=== PATIENT | female | born 1965 | race American Indian/Alaskan Native ===

== ENCOUNTER 2018-08-03 11:01 | Emergency (ER) | payer BC ==
[2018-08-03 11:32] VITALS: BP 151/99; PULSE 90; RESP 18; TEMP 99.2; O2SAT 98
--- NOTE | 2018-08-03 12:29 | ED PDOC ---
HPI: Back Time Seen by Provider: 08/03/18 12:17 Chief Complaint (Nursing): Back Pain Chief Complaint (Provider): Back pain History Per: Patient History/Exam Limitations: no limitations Onset/Duration Of Symptoms: Days (x2) Additional Complaint(s): Naye Richey, a 52 year old female with no significant past medical history, presents to the ED with back pain onset 2 days. Patient denies any new activities, trouble breathing, urinary symptoms or taking medication. She states that deep breathing hurts a little, movement worsens pain and it hurts when touched. No further medical complaints. Past Medical History Reviewed: Historical Data, Nursing Documentation, Vital Signs Vital Signs: Last Vital Signs Temp 99.2 F 08/03/18 11:30 Pulse 90 08/03/18 11:30 Resp 18 08/03/18 11:30 BP 151/99 H 08/03/18 11:30 Pulse Ox 98 08/03/18 11:30 - Medical History PMH: GERD, HTN - Family History Family History: States: Unknown Family Hx - Home Medications Home Medications: Ambulatory Orders Medication Instructions Recorded hydroCHLOROthiazide [Hydrodiuril] 25 mg PO DAILY #30 tab 06/07/16 Cyclobenzaprine [Cyclobenzaprine 10 mg PO Q8H PRN #12 tab 08/03/18 HCl] Naproxen [Naprosyn] 500 mg PO BID PRN #20 tablet 08/03/18 - Allergies Allergies/Adverse Reactions: Allergies Allergy/AdvReac Type Severity Reaction Status Date / Time acetaminophen [From Percocet] Allergy ITCHING Verified 08/03/18 11:29 oxycodone HCl [From Percocet] Allergy ITCHING Verified 08/03/18 11:29 Review of Systems ROS Statement: Except As Marked, All Systems Reviewed And Found Negative Genitourinary Female: Negative for: Dysuria, Frequency, Incontinence, Hematuria Musculoskeletal: Positive for: Back Pain Physical Exam - Reviewed Nursing Documentation Reviewed: Yes Vital Signs Reviewed: Yes - Physical Exam Appears: Positive for: Well, Non-toxic, No Acute Distress Head Exam: Positive for: ATRAUMATIC, NORMAL INSPECTION, NORMOCEPHALIC Skin: Positive for: Normal Color, Warm, DRY Eye Exam: Positive for: Normal appearance ENT: Positive for: Normal ENT Inspection Neck: Positive for: Normal Cardiovascular/Chest: Negative for: Bradycardia, Tachycardia Respiratory: Negative for: Accessory Muscle Use, Respiratory Distress Back: Positive for: Other (right paraspinal tenderness, no midline tenderness) Extremity: Positive for: Normal ROM Neurologic/Psych: Positive for: Alert, Oriented - ECG O2 Sat by Pulse Oximetry: 98 (RA) Pulse Ox Interpretation: Normal Medical Decision Making Medical Decision Making: Time: 12:17 Initial Impression: back pain Initial Plan: --Flexeril 10 mg PO --Naproxen 500 mg PO Scribe Attestation: Documented by Sania Yang, acting as a scribe for Tammy Nye PA-C. Provider Scribe Attestation: All medical record entries made by the Scribe were at my direction and personally dictated by me. I have reviewed the chart and agree that the record accurately reflects my personal performance of the history, physical exam, medical decision making, and the department course for this patient. I have also personally directed, reviewed, and agree with the discharge instructions and disposition. Disposition - Clinical Impression Clinical Impression: Back pain - Patient ED Disposition Is Patient to be Admitted: No Counseled Patient/Family Regarding: Diagnosis, Need For Followup, Rx Given - Disposition Disposition: Routine/Home Disposition Time: 13:37 Condition: GOOD Prescriptions: Cyclobenzaprine [Cyclobenzaprine HCl] 10 mg PO Q8H PRN #12 tab PRN Reason: Muscle Spasm Naproxen [Naprosyn] 500 mg PO BID PRN #20 tablet PRN Reason: Pain Instructions: Upper Back Pain Forms: [employer] ([place])
[2018-08-03] MEDS ORDERED: Naproxen 500 MG TAB PO STA (12:41)
[2018-08-03] MEDS ORDERED: Naproxen 500 MG TAB PO ONE (13:07)
== END 2018-08-03 14:26 | disposition home or self-care (01) ==
LOC: H.ER 11:01
DX: M54.9 Dorsalgia, unspecified (principal)

== ENCOUNTER 2019-01-25 13:49 | Emergency (ER) | payer BC ==
--- NOTE | 2019-01-25 14:31 | RAD ---
Date of service: 01/25/2019 HISTORY: chest pain/ r/o infiltrate COMPARISON: Comparison chest 02/26/2010. TECHNIQUE: Chest PA and lateral views FINDINGS: LUNGS: No active pulmonary disease. PLEURA: No significant pleural effusion identified. No pneumothorax apparent. CARDIOVASCULAR: No aortic atherosclerotic calcification present. Normal cardiac size. No pulmonary vascular congestion. OSSEOUS STRUCTURES: Mild multilevel degenerative spondylosis of the thoracic spine. VISUALIZED UPPER ABDOMEN: Normal. OTHER FINDINGS: None. IMPRESSION: No active disease.
--- NOTE | 2019-01-25 15:17 | CT ---
Date of service: 01/25/2019 PROCEDURE: CT HEAD WITHOUT CONTRAST. HISTORY: Headache and left arm pain. COMPARISON: None available. TECHNIQUE: Axial computed tomography images were obtained through the head/brain without intravenous contrast. Radiation dose: Total exam DLP = 889.5 mGy-cm. This CT exam was performed using one or more of the following dose reduction techniques: Automated exposure control, adjustment of the mA and/or kV according to patient size, and/or use of iterative reconstruction technique. FINDINGS: HEMORRHAGE: No acute parenchymal, subarachnoid or extra-axial mild hemorrhage. BRAIN: Minor diffuse and confluent chronic periventricular white matter ischemic changes seen extending peripherally into the deep white matter both cerebral hemispheres. There may also be a few tiny bilateral basal nuclei lacunar type infarcts. Note the possibility of a small hyperacute infarct not excluded on this exam VENTRICLES: No obstructive hydrocephalus.. There is mild asymmetry of the lateral ventricles right-sided which is slightly larger than the left felt to represent an anatomic variation. CALVARIUM: Unremarkable. PARANASAL SINUSES: Minor mucosal thickening noted within a few ethmoid air cells. And sphenoid sinus MASTOID AIR CELLS: Unremarkable as visualized. No inflammatory changes. OTHER FINDINGS: None. IMPRESSION: No acute intracranial hemorrhage. Minor chronic periventricular white matter ischemic changes.
--- NOTE | 2019-01-25 15:29 | CT ---
Date of service: 01/25/2019 PROCEDURE: CT Cervical Spine without contrast HISTORY: Left arm and neck pain. COMPARISON: None available. TECHNIQUE: Axial computed tomography images were obtained of the cervical spine without the use of intravenous contrast. Coronal and sagittal reformatted images were created and reviewed. Radiation dose: Total exam DLP = 384.34 mGy-cm. This CT exam was performed using one or more of the following dose reduction techniques: Automated exposure control, adjustment of the mA and/or kV according to patient size, and/or use of iterative reconstruction technique. No acute compression fractures nor retropulsed fragments. Vertebral bodies exhibit relatively normal stature. There is straightening of the normal cervical lordosis which may in part be due to patient positioning gantry however underlying element of muscle spasm may contribute. FINDINGS: VERTEBRAE: No acute compression fractures no retropulsed fragments. Vertebral bodies exhibit relatively normal stature. Note is made of a incomplete fusion anomaly posterior arch C1. There is straightening of the normal cervical lordosis possibly secondary to patient positioning gantry however underlying element of muscle spasm may contribute. DISCS/SPINAL CANAL/NEURAL FORAMINA: Mild multilevel degenerative spondylosis. At the C2-C3 level, there is relatively adequate disc height. Minimal broad-based disc bulge flattens the ventral surface of the thecal sac appears to minimally flatten the ventral surface of the thecal sac without significant cord compression. The overall central canal appears adequate. Mild right-sided facet arthropathy. Exit foramina appear marginal to adequate on the right side and adequate on the left. At the C3-C4 level, there is adequate disc height. No disc herniation or significant disc bulge. The facets are minimally hypertrophic on the left side. The overall central bony canal appears marginal. Exit foramina appear adequate. At the C4-C5 level, there is adequate disc height. No disc herniation however there is mild left-sided facet arthropathy. Central canal and exit foramina appear adequate. At the C5-C6 level, there is minor broad-based bulge of the posterior annulus contiguous with hypertrophic left-sided uncovertebral joint changes. The facets also slightly prominent. Central canal is slightly narrowed. Exit foramina are marginal to minimally narrowed on the left and adequate on the right. At the C6-C7 level, there is mild disc space narrowing along the anterior disc margin with prominent anterior osteophyte formation. Questionable central and bilateral disc bulge versus artifact. PARASPINAL SOFT TISSUES: Paraspinal soft tissues unremarkable. OTHER FINDINGS: Note made of a 2.5 mm nodule right lateral lung apex of nonspecific. Consider follow-up nonemergent CT scan of the chest further evaluation and will serve as baseline exam for future comparison studies. IMPRESSION: No acute fractures. Incomplete fusion anomaly posterior arch C1. Mild multilevel degenerative spondylosis as described above. There is a tiny 2.5 mm nodule right lateral lung apex of nonspecific. Consider follow-up nonemergent CT scan of the chest further evaluation and will serve as a baseline exam for future comparison studies.
[2019-01-25 15:54] LABS: BASO % 0.8 % (0.0-2.0); EOS # 0.2 K/uL (0.0-0.7); HEMOGLOBIN 13.8 g/dL (12.0-16.0); LYMPH # 2.4 K/uL (1.0-4.3); LYMPH % 44.7 % (20.0-40.0); MEAN CELL VOLUME 87.8 fl (81.0-99.0); MEAN CORPUSCULAR HEMOGLOBIN 28.9 pg (27.0-31.0); MEAN CORPUSCULAR HGB CONC 32.9 g/dL (33.0-37.0); MEAN PLATELET VOLUME 7.9 fl (7.2-11.7); MONO # 0.4 K/uL (0.0-0.8); MONO % 8.1 % (0.0-10.0); NEUT # 2.3 K/uL (1.8-7.0); NEUT % 43.4 % (50.0-75.0); NRBC % 0.1 % (0.0-0.0); RBC 4.76 Mil/uL (3.80-5.20); RED CELL DISTRIBUTION WIDTH 14.4 % (11.5-14.5); WHITE BLOOD COUNT 5.3 K/uL (4.8-10.8)
[2019-01-25 15:58] LABS: ALB/GLOB RATIO 1.2 (1.0-2.1); ALBUMIN 4.6 g/dL (3.5-5.0); ALT/SGPT 22 U/L (9-52); AST/SGOT 28 U/L (14-36); BLOOD UREA NITROGEN 20 mg/dl (7-17); CALCIUM 9.8 mg/dL (8.4-10.2); GFR NON-AFRICAN AMERICAN > 60
[2019-01-25 16:10] LABS: B-TYPE NATRIURETIC PEPTIDE 19.9 pg/ml (0-900)
--- NOTE | 2019-01-25 16:12 | ED PDOC ---
HPI: General Adult Time Seen by Provider: 01/25/19 14:01 Chief Complaint (Nursing): Headache Chief Complaint (Provider): left arm pain History Per: Patient History/Exam Limitations: no limitations Current Symptoms Are (Timing): Still Present Severity: Mild Location Of Discomfort (Image): 1 - pain 2 - radiation pain Additional Complaint(s): 53yo female hx HTN presents c/o L arm pain, originates in L neck and radiates to lower arm, denies weakness or numbness, denies trauma or injury. States developed slowly yesterday, denies change vision, speech, facial droop or gait disturbance. Also notes R foot pain, atraumatic, mostly distal R forefoot no arch or ankle pain, no trauma, redness or skin changes. Worsens with sitting, improves w/ walking. Past Medical History Reviewed: Historical Data, Nursing Documentation, Vital Signs Vital Signs: Last Vital Signs Temp 97.6 F 01/25/19 13:52 Pulse 80 01/25/19 13:52 Resp 16 01/25/19 13:52 BP 132/96 H 01/25/19 13:52 Pulse Ox 99 01/25/19 13:52 - Medical History PMH: GERD, HTN Denies: Chronic Kidney Disease - Surgical History Surgical History: Endoscopy - Family History Family History: States: Unknown Family Hx - Living Arrangements Living Arrangements: With Family - Social History Current smoker - smoking cessation education provided: No - Home Medications Home Medications: Ambulatory Orders Medication Instructions Recorded hydroCHLOROthiazide [Hydrodiuril] 25 mg PO DAILY #30 tab 06/07/16 Cyclobenzaprine [Cyclobenzaprine 10 mg PO Q8H PRN #12 tab 08/03/18 HCl] Naproxen [Naprosyn] 500 mg PO BID PRN #20 tablet 08/03/18 Cyclobenzaprine [Cyclobenzaprine 10 mg PO Q8 PRN #9 tab 01/25/19 HCl] Naproxen [Naprosyn] 500 mg PO BID PRN #14 tablet 01/25/19 - Allergies Allergies/Adverse Reactions: Allergies Allergy/AdvReac Type Severity Reaction Status Date / Time acetaminophen [From Percocet] Allergy ITCHING Verified 08/03/18 11:29 oxycodone HCl [From Percocet] Allergy ITCHING Verified 08/03/18 11:29 Review of Systems ROS Statement: Except As Marked, All Systems Reviewed And Found Negative Constitutional: Negative for: Fever ENT: Negative for: Nose Discharge Cardiovascular: Negative for: Chest Pain Gastrointestinal: Negative for: Vomiting, Diarrhea Genitourinary Female: Negative for: Dysuria, Incontinence Musculoskeletal: Positive for: Neck Pain, Shoulder Pain, Arm Pain, Foot Pain (R foot ongoing). Negative for: Back Pain, Hand Pain, Leg Pain Physical Exam - Reviewed Nursing Documentation Reviewed: Yes Vital Signs Reviewed: Yes - Physical Exam Appears: Positive for: Well, Non-toxic, No Acute Distress Head Exam: Positive for: ATRAUMATIC, NORMAL INSPECTION, NORMOCEPHALIC Skin: Positive for: Normal Color, Warm, DRY Eye Exam: Positive for: EOMI, Normal appearance, PERRL ENT: Positive for: Normal ENT Inspection Neck: Positive for: Normal, Painless ROM Cardiovascular/Chest: Positive for: Regular Rate, Rhythm Respiratory: Positive for: Normal Breath Sounds. Negative for: Respiratory Distress Gastrointestinal/Abdominal: Positive for: Normal Exam, Soft Back: Positive for: Normal Inspection Extremity: Positive for: Normal ROM, Other (R foot nontender no skin changes, no erythema or edema, normal ROM ankle/foot/toes). Negative for: Tenderness Neurological/Psych: Positive for: Awake, Alert, Normal Tone, Symmetric/Intact Strength, Oriented, Mood/Affect, Gait (normal), Cerebellar Tests (intact), Motor/Sensory Deficits (intact). Negative for: Facial Droop - Laboratory Results Result Diagrams: 01/25/19 15:42 01/25/19 15:42 Lab Results: Total Bilirubin 0.5 mg/dl (0.2-1.3) 01/25/19 15:42 AST 28 U/L (14-36) 01/25/19 15:42 ALT 22 U/L (9-52) 01/25/19 15:42 Alkaline Phosphatase 98 U/L (38-126) 01/25/19 15:42 Total Protein 8.5 G/DL (6.3-8.2) H 01/25/19 15:42 Albumin 4.6 g/dL (3.5-5.0) 01/25/19 15:42 Globulin 3.9 gm/dL (2.2-3.9) 01/25/19 15:42 Albumin/Globulin Ratio 1.2 (1.0-2.1) 01/25/19 15:42 - ECG ECG: Positive for: Interpreted By Me ECG Rhythm: Positive for: Normal ST Segment, Sinus Rhythm. Negative for: ST/T Changes, Nonspecific Changes Rate: 76 O2 Sat by Pulse Oximetry: 99 Pulse Ox Interpretation: Normal Medical Decision Making Medical Decision Making: workup for L arm pain, from clinical history appears radicular in nature, obtain CT brain and CSpine, no acute neuro deficits on exam. CT REPORT REVIEWED Accession No. : [id number] Patient Name / ID : SEKOU SETH / [id number] Exam Date : 01/25/2019 14:43:02 ( Approved ) Study Comment : Sex / Age : F / 53Y Creator : Norberto Bro MD Dictator : Norberto Bro MD [employer] Operator : Venue Coordinator : Norberto Bro MD Approver2 : Report Date : 01/25/2019 15:26:12 My Comment : Date of service: 01/25/2019 PROCEDURE: CT Cervical Spine without contrast HISTORY: Left arm and neck pain. COMPARISON: None available. TECHNIQUE: Axial computed tomography images were obtained of the cervical spine without the use of intravenous contrast. Coronal and sagittal reformatted images were created and reviewed. Radiation dose: Total exam DLP = 384.34 mGy-cm. This CT exam was performed using one or more of the following dose reduction techniques: Automated exposure control, adjustment of the mA and/or kV according to patient size, and/or use of iterative reconstruction technique. No acute compression fractures nor retropulsed fragments. Vertebral bodies exhibit relatively normal stature. There is straightening of the normal cervical lordosis which may in part be due to patient positioning gantry however underlying element of muscle spasm may contribute. FINDINGS: VERTEBRAE: No acute compression fractures no retropulsed fragments. Vertebral bodies e xhibit relatively normal stature. Note is made of a incomplete fusion anomaly posterior arch C1. There is straightening of the normal cervical lordosis possibly secondary to patient positioning gantry however underlying element of muscle spasm may contribute. DISCS/SPINAL CANAL/NEURAL FORAMINA: Mild multilevel degenerative spondylosis. At the C2-C3 level, there is relatively adequate disc height. Minimal broad- based disc bulge flattens the ventral surface of the thecal sac appears to min imally flatten the ventral surface of the thecal sac without significant cord compression. The overall central canal appears adequate. Mild right-sided facet arthropathy. Exit foramina appear marginal to adequate on the right side and adequate on the left. At the C3-C4 level, there is adequate disc height. No disc herniation or significant disc bulge. The facets are minimally hypertrophic on the left side. The overall central bony canal appears marginal. Exit foramina appear adequate. At the C4-C5 level, there is adequate disc height. No disc herniation however there is mild left-sided facet arthropathy. Central canal and exit foramina appear adequate. At the C5-C6 level, there is minor broad-based bulge of the posterior annulus contiguous with hypertrophic left-sided uncovertebral joint changes. The facets also slightly prominent. Central canal is slightly narrowed. Exit foramina are marginal to minimally narrowed on the left and adequate on the right. At the C6-C7 level, there is mild disc space narrowing along the anterior disc margin with prominent anterior osteophyte formation. Questionable central and bilateral disc bulge versus artifact. PARASPINAL SOFT TISSUES: Paraspinal soft tissues unremarkable. OTHER FINDINGS: Note made of a 2.5 mm nodule right lateral lung apex of nonspecific. Consider follow-up nonemergent CT scan of the chest further evaluation and will serve as baseline exam for future comparison studies. IMPRESSION: No acute fractures. Incomplete fusion anomaly posterior arch C1. Mild multilevel degenerative spondylosis as described above. There is a tiny 2.5 mm nodule right lateral lung apex of nonspecific. Consider follow-up nonemergent CT scan of the chest further evaluation and will serve as a baseline exam for future comparison studies. CT brain report also reviewed 5p re-eval improved in ED, no weakness or numbness C5C6 bulge could be giving her radicular symptoms. [facility] also [facility] to [facility] for eval Rx naprosyn and flexeril Disposition - Clinical Impression Clinical Impression: Neck pain, Radicular pain in left arm - Patient ED Disposition Is Patient to be Admitted: No Counseled Patient/Family Regarding: Studies Performed, Diagnosis, Need For Followup, Rx Given - Disposition Referrals: Prashanth Shi MD [Staff Provider] - Seman,Conner Natarajan MD [Staff Provider] - Disposition: Routine/Home Disposition Time: 17:00 Condition: STABLE Additional Instructions: Your CT neck showed a small nodule in your upper lung which requires full CT scan of chest as outpatient. Discuss with your doctor for scheduling. Followup with PMD, neurologist, and a crew person for your Right foot pain. Discuss this report with your primary doctor or recreation program specialist to have MRI performed, and return to ER if your pain worsens, you develop numbness or w eakness, or any concern. DO NOT DRIVE OR OPERATE MACHINERY WHILE TAKING MUSCLE RELAXANT. Accession No. : [id number] Patient Name / ID : SEKOU SETH / [id number] Exam Date : 01/25/2019 14:43:02 ( Approved ) Study Comment : Sex / Age : F / 53Y Creator : Norberto Bro MD Dictator : Norberto Bro MD [employer] Operator : Venue Coordinator : Norberto Bro MD Approver2 : Report Date : 01/25/2019 15:26:12 My Comment : Date of service: 01/25/2019 PROCEDURE: CT Cervical Spine without contrast HISTORY: Left arm and neck pain. COMPARISON: None available. TECHNIQUE: Axial computed tomography images were obtained of the cervical spine without the use of intravenous contrast. Coronal and sagittal reformatted images were created and reviewed. Radiation dose: Total exam DLP = 384.34 mGy-cm. This CT exam was performed using one or more of the following dose reduction techniques: Automated exposure control, adjustment of the mA and/or kV according to patient size, and/or use of iterative reconstruction technique. No acute compression fractures nor retropulsed fragments. Vertebral bodies exhibit relatively normal stature. There is straightening of the normal cervical lordosis which may in part be due to patient positioning gantry however underlying element of muscle spasm may contribute. FINDINGS: VERTEBRAE: No acute compression fractures no retropulsed fragments. Vertebral bodies exhibit relatively normal stature. Note is made of a incomplete fusion anomaly posterior arch C1. There is straightening of the normal cervical lordosis possibly secondary to patient positioning gantry however underlying element of muscle spasm may contribute. DISCS/SPINAL CANAL/NEURAL FORAMINA: Mild multilevel degenerative spondylosis. At the C2-C3 level, there is relatively adequate disc height. Minimal broad- based disc bulge flattens the ventral surface of the thecal sac appears to minimally flatten the ventral surface of the thecal sac without significant cord compression. The overall central canal appears adequate. Mild right-sided facet arthropathy. Exit foramina appear marginal to adequate on the right side and adequate on the left. At the C3-C4 level, there is adequate disc height. No disc herniation or significant disc bulge. The facets are minimally hypertrophic on the left side. The overall central bony canal appears marginal. Exit foramina appear adequate. At the C4-C5 level, there is adequate disc height. No disc herniation however there is mild left-sided facet arthropathy. Central canal and exit foramina appear adequate. At the C5-C6 level, there is minor broad-based bulge of the posterior annulus contiguous with hypertrophic left-sided uncovertebral joint changes. The facets also slightly prominent. Central canal is slightly narrowed. Exit foramina are marginal to minimally narrowed on the left and adequate on the right. At the C6-C7 level, there is mild disc space narrowing along the anterior disc margin with prominent anterior osteophyte formation. Questionable central and bilateral disc bulge versus artifact. PARASPINAL SOFT TISSUES: Paraspinal soft tissues unremarkable. OTHER FINDINGS: Note made of a 2.5 mm nodule right lateral lung apex of nonspecific. Consider follow-up nonemergent CT scan of the chest further evaluation and will serve as baseline exam for future comparison studies. IMPRESSION: No acute fractures. Incomplete fusion anomaly posterior arch C1. Mild multilevel degenerative spondylosis as described above. There is a tiny 2.5 mm nodule right lateral lung apex of nonspecific. Consider follow-up nonemergent CT scan of the chest further evaluation and will serve as a baseline exam for future comparison studies. Prescriptions: Cyclobenzaprine [Cyclobenzaprine HCl] 10 mg PO Q8 PRN #9 tab PRN Reason: Muscle Spasm Naproxen [Naprosyn] 500 mg PO BID PRN #14 tablet PRN Reason: Pain, Moderate (4-7) Instructions: Generalized Neck Pain (DC), Radiculopathy Forms: [facility] (Slovak)
[2019-01-25 18:34] VITALS: BP 132/87; RESP 18; TEMP 98.1
[2019-01-25 18:35] VITALS: PULSE 76; O2SAT 99
--- NOTE | 2019-01-26 10:26 | CARD ---
APPROVED REPORT Date of service: 01/25/2019 EKG Measurement Heart [id number] <Conclusion> Normal sinus rhythm Normal ECG
== END 2019-01-25 18:31 | disposition home or self-care (01) ==
LOC: H.ER 13:49
DX: M79.602 Pain in left arm (principal); M54.2 Cervicalgia; I10 Essential (primary) hypertension; K21.9 Gastro-esophageal reflux disease without esophagitis; Z88.5 Allergy status to narcotic agent
CPT/HCPCS: 70450; 71046; 72125; 80053; 81025; 83880; 84484; 85025; 93005; 96374; 99285; J1885